=== PATIENT | female | born 1995 | race Caucasian/White ===

== ENCOUNTER 2016-12-08 21:36 | Emergency (ER) | payer OTHER ==
[~2016-12-08] VITALS: Ht 162.6 cm; Wt 72.7 kg
[~2016-12-08 21:36] MED LIST: CITA20TA11 PO
[2016-12-08 21:37] VITALS: BP 143/79; PULSE 116; RESP 20; O2SAT 97
--- NOTE | 2016-12-08 22:14 | ED.REPORT ---
HPI-General Illness Date of Service Dec 08, 2016 ED Provider: Dae Lunsford DO Pt is a 21 y/o female who presents to the ED c/o right mastitis onset yesterday. She had a baby two weeks ago and is currently . Additional symptoms include 101.6 fever and erythema over her right breast. She denies drainage from breast, nausea, vomiting, diarrhea, abdominal pain, neck pain, SOB, or cough. She also denies any IVDA or infection. Nursing Notes Stated Complaint: MASTITIS Chief Complaint: General Complaint Nursing Notes Reviewed: Yes Allergies: Coded Allergies: No Known Allergies (Unverified Allergy, Unknown, 05/23/15) Scheduled Citalopram (Citalopram) 20 Mg Tablet 20 MG PO DAILY General Time Seen by MD: 22:13 Chief Complaint Other (R mastitis) Hx Obtained From: Patient, Spouse Arrived By: Walk-in Onset Occurred: Yesterday Quality: Painful Severity: Current: Mild Severity: Maximum: Moderate Recent Healthcare: No recent doctor visit, No recent hospitalization Similar Sx Previous: No Past Medical History Past Medical History Denies Past Surgical History Denies Smoking History Former Smoker Social History Drug Use: Denies drug use Other Social History: Good social support Ambulatory Status Independent Review of Systems Erythema on R breast No drainage from breast Full Review of Systems Constitutional: Reports: Fever (101.6) Respiratory: Denies: Non-productive cough, Prod cough, clear, Shortness of breath GI: Denies: Abdominal pain, Diarrhea, Nausea, Vomiting Musculoskeletal: Denies: Neck pain Complete sys rev & neg: except as marked. Physical Exam Vital Signs Vital Signs Date Time Temp Pulse Resp B/P Pulse Ox O2 Delivery O2 Flow Rate FiO2 12/09/16 00:01 87 16 118/59 99 Room Air 12/08/16 21:37 38.0 116 20 143/79 97 Room Air Initial VS: Reviewed Head / Eyes: Atraumatic, Normocephalic Neck: Supple, Full range of motion Extremities: Vascular intact, Neuro intact, No swelling, No tenderness Skin: Warm, Dry, No cyanosis Neurologic: Alert, Oriented, Nonfocal Psychiatric: Mood/affect normal, Behavior normal, Normal thought content General/Constitutional: Awake, Alert Respiratory / Chest: Atraumatic, Breath sounds NL, Breath sounds = bilat, No respiratory distress Breast: Positive: Erythema R, Tenderness R No palpable mass over R breast Cardiovascular: Heart rate NL, Regular rhythm, Heart sounds NL Re-Eval/Medical Decision Med Decision/Clinical Course Well-appearing 21-year-old female with nonfluctuant mastitis. Most likely infectious mastitis. No risk factors for methicillin-resistant staph aureus. She will be treated with dicloxacillin and outpatient follow-up. Source of Hx: Old records Time of Eval: 23:41 Re-Evaluation/Progress Note: Patient rechecked. Discussed plan for discharge. Patient understands and agrees with plan. F/U instructions and RTER warnings given. All questions addressed at this time. Counseled Regarding: Diagnosis, Lab results, Need for follow-up, When/why to return to ED Discharge & Departure Primary Impression: Infective mastitis Disposition: Home Discharge Condition All VS Reviewed: Yes Condition: Stable Patient Instructions: Mastitis (ED) Additional Instructions: Your examination today indicates that you have infectious mastitis. Take dicloxacillin four times a day for one week. You can use a warm compress and Tylenol or Motrin to help with pain. You may continue . Follow up with your primary care doctor or your [employer] in 2-3 days for a recheck. Return to the emergency department if you have any new or worsening symptoms. Referrals: Elida Araiza CNM (PCP) Scribe Attestation Portions of this note were transcribed by Deena Meredith. I, Dr. Lunsford, personally performed the history, physical exam and medical decision-making; I reviewed and confirmed the accuracy of the information in the transcribed note. copies to: Elida Araiza CNM, Todd P DO Dec 08, 2016 22:14 Deena Meredith Dec 08, 2016 22:18
[2016-12-08] MEDS ORDERED: Clindamycin Inj 900 MG in IV Premix 1 EACH IV ONE (22:25)
[2016-12-09 00:01] VITALS: BP 118/59; PULSE 87; RESP 16; O2SAT 99
== END 2016-12-08 23:59 | disposition home or self-care (01) ==
LOC: SED 21:36
DX: O91.22 Nonpurulent mastitis associated with the puerperium (principal); Z87.891 Personal history of nicotine dependence
CPT/HCPCS: 96365; 99284; J3490